=== PATIENT | female | born 1970 | race Caucasian/White ===

== ENCOUNTER 2017-01-03 10:28 | Emergency (ER) | payer OTHER ==
[~2017-01-03] VITALS: Ht 160 cm; Wt 67.0 kg
[~2017-01-03 10:28] MED LIST: ALBUTEROL INH
[2017-01-03 10:29] VITALS: Ht 160 cm; Wt 67.0 kg
[2017-01-03] MEDS ORDERED: IPRATROPIUM (NEB) 0.5 MG/2.5 ML AMP NEB STA (10:40)
[2017-01-03] MEDS ORDERED: predniSONE 20 MG TAB PO STA (10:40)
[2017-01-03] MEDS ORDERED: ALBUTEROL 0.5% (NEB) 2.5 MG/0.5 ML AMP INH STA (10:40)
--- NOTE | 2017-01-03 10:51 | ERD ---
ER Documentation Chief Complaint Date/Time DATE: 01/03/17 TIME: 10:47 Chief Complaint sob x 4 hrs h/o asthma HPI Patient is a 46-year-old female past medical history of asthma who presents emergency department with shortness of breath 4 hours. Patient states that she is having wheezing. She reports using her albuterol inhaler earlier during the night with some relief of symptoms. Patient does report fevers early in the week however she states they have resolved now. Patient did have a dry cough as well. Patient denies previous history of needing intubation or hospitalization for asthma attacks. Patient denies any chest pain, nausea, vomiting, abdominal pain. Patient denies any recent travel. No sick contacts. ROS All systems reviewed and are negative except as per history of present illness. Medications Home Meds Active Scripts Albuterol Sulfate* (Proair HFA*) 8.5 Gm Hfa.aer.ad, 2 PUFF INH Q4, #1 INHALER Prov:LUPE KUHN PA-C 01/03/17 Ibuprofen* (Ibuprofen*) 600 Mg Tablet, 600 MG PO Q6, #20 TAB Prov:LUPE KUHN PA-C 01/03/17 Prednisone* (Prednisone*) 20 Mg Tab, 40 MG PO DAILY for 4 Days, TAB Prov:LUPE KUHN PA-C 01/03/17 Reported Medications [Albuterol Inh] No Conflict Check, PRN 05/21/13 Allergies Allergies: Coded Allergies: No Known Allergy (Unverified , 05/21/13) PMhx/Soc History of Surgery: Yes (TONO winter) Anesthesia Reaction: No Hx Neurological Disorder: No Hx Respiratory Disorders: Yes (ASTHMA) Hx Cardiac Disorders: No Hx Psychiatric Problems: No Hx Miscellaneous Medical Probl: No Hx Alcohol Use: No Hx Substance Use: No FmHx Family History: No diabetes Physical Exam Vitals Vital Signs Date Time Temp Pulse Resp B/P Pulse Ox O2 Delivery O2 Flow Rate FiO2 01/03/17 14:07 80 100 Room Air 01/03/17 13:07 98.4 80 20 115/74 99 Room Air 01/03/17 10:50 85 20 96 21 01/03/17 10:41 Nasal Cannula 3 01/03/17 10:29 98.1 90 22 140/63 96 Physical Exam GENERAL: Well-developed, well-nourished female. Appears to be short of breath, abdominal retractions noted. HEAD: Normocephalic, atraumatic. No deformities or ecchymosis. EYE: Pupils equal, round, and reactive to light. EOMs intact. No conjunctival erythema. No eye discharge. ENT: External ear without any masses or tenderness. Nasal mucosa pink with no discharge. Oropharynx is pink without any tonsillar erythema or exudates. No uvula deviation. No kissing tonsils. NECK: Supple. No meningismus. Normal ROM of the neck. LUNG: Wheezing auscultated in all 4 lobes. HEART: Regular rate and rhythm. No murmurs, rubs or gallops. BACK: No midline tenderness. EXTREMITES: Equal pulses bilaterally. No peripheral clubbing, cyanosis or edema. No unilateral leg swelling. NEUROLOGIC: Alert and oriented to person, place and time. Moving all four extremities. 5/5 strength in all extremities. Steady gait. SKIN: Normal color. Warm and dry. No rashes or lesions. Result Diagram: 01/03/17 1139 01/03/17 1139 Results 24 hrs Laboratory Tests Test 01/03/17 11:39 White Blood Count 9.310^3/ul Red Blood Count 4.7410^6/ul Hemoglobin 14.6g/dl Hematocrit 43.7% Mean Corpuscular Volume 92.2fl Mean Corpuscular Hemoglobin 30.8pg Mean Corpuscular Hemoglobin Concent 33.4g/dl Red Cell Distribution Width 11.9% Platelet Count 33581^3/UL Mean Platelet Volume 10.7fl Neutrophils % 71.0% Lymphocytes % 21.1% Monocytes % 3.9% Eosinophils % 3.3% Basophils % 0.4% Nucleated Red Blood Cells % 0.0/100WBC Neutrophils # 6.610^3/ul Lymphocytes # 2.010^3/ul Monocytes # 0.410^3/ul Eosinophils # 0.310^3/ul Basophils # 0.010^3/ul Nucleated Red Blood Cells # 0.010^3/ul Sodium Level 138mmol/L Potassium Level 3.9mmol/L Chloride Level 104mmol/L Carbon Dioxide Level 27mmol/L Anion Gap 11 Blood Urea Nitrogen 11mg/dl Creatinine 0.64mg/dl Glucose Level 99mg/dl Calcium Level 9.7mg/dl Current Medications Medications (Trade) Dose Ordered Sig/Isiah Route PRN Reason Start Time Stop Time Status Last Admin Dose Admin Ipratropium [place] (Atrovent 0.02% (Neb)) 1.5 mg ONCE STAT NEB 01/03/17 10:40 01/03/17 10:45 DC Albuterol (Proventil 0.5% (Neb)) 10 mg ONCE STAT INH 01/03/17 10:40 01/03/17 10:41 DC 01/03/17 10:48 Prednisone (Prednisone) 40 mg ONCE STAT PO 01/03/17 10:40 01/03/17 10:41 DC 01/03/17 10:46 Ipratropium [place] (Atrovent 0.02% (Neb)) 1 mg ONCE ONCE HHN 01/03/17 11:00 01/03/17 11:01 DC 01/03/17 10:48 IV Flush 10 ml 10 ml STK-MED ONCE .ROUTE 01/03/17 12:52 01/03/17 12:53 DC Sodium Chloride (NS) 100 ml @ ud STK-MED ONCE .ROUTE 01/03/17 12:52 01/03/17 12:53 DC Iohexol (Omnipaque 300mg/ ml) 150 ml STK-MED ONCE .ROUTE 01/03/17 12:52 01/03/17 12:53 DC Procedures/MDM ED COURSE: The patient was stable throughout ED course. I kept the patient and/or family informed of laboratory and diagnostic imaging results throughout the ED course. DIAGNOSTIC IMAGING: Read by radiologist. DIAGNOSTIC IMAGING REPORT Patient: DEUCE BARBER : 1970 Age: 46 Sex: F MR #: [id number] DOS: 01/03/17 1040 Ordering MD: LUPE KUHN PA-C Location: [facility] Room/Bed: PROCEDURE: XR Chest. CLINICAL INDICATION: Asthma TECHNIQUE: Single frontal view of the chest was obtained COMPARISON: 05/21/2013 FINDINGS: The heart and mediastinum are within normal limits. There is a new 3.0 x 2.0 cm soft tissue density in the right paratracheal region. There is no pleural effusion or pneumothorax. RPTAT: AA IMPRESSION: New 3 cm right paratracheal soft tissue density, suspicious for a mass or adenopathy. Further evaluation with CT with contrast is recommended. A call report was made and the findings discussed with Lupe Kuhn Pa-c at 11:12:59 AM. .Adria Moody MD, Date Time Electronically viewed and signed by .Adria Moody MD, MD on 01/03/2017 11: 26 .S/ CC: LUPE KUHN PA-C Patient: DEUCE BARBER : 1970 Age: 46 Sex: F MR #: [id number] DOS: 01/03/17 1127 Ordering MD: LUPE KUHN PA-C Location: [facility] Room/Bed: PROCEDURE: CT Chest with contrast. CLINICAL INDICATION: Abnormal chest x-ray. Asthma exacerbation. TECHNIQUE: CT scan of the chest with contrast was performed following the uncomplicated intravenous administration of 80 cc of Omnipaque-300. Coronal and sagittal reformatted images were obtained from the axial source images. Images were reviewed on a high-resolution PACS workstation. CTDIvol (mGy): 7.88 ; Total Exam DLP (mGy-cm): 317.89. One or more of the following dose reduction techniques were utilized: - Automated exposure control. - Adjustment of the mA and/or kV according to patient size. - Use of iterative reconstruction technique. COMPARISON: Chest x-ray . FINDINGS: Limited imaging of the lower neck is unremarkable. The heart is not enlarged. There is no pericardial effusion. There is no mediastinal, hilar or axillary lymphadenopathy. There is no evidence of paratracheal mass or paratracheal lymphadenopathy. The abnormality seen on earlier chest x-ray may reflect a confluence of shadows and vascular markings. The thoracic aorta is normal in caliber. The pulmonary arteries are not enlarged. Lung volumes are normal to slightly increased. Diffuse bronchial wall thickening is observed. Scattered mild atelectatic changes are seen within the right lower lobe and middle lobe. There is no pulmonary consolidation or pleural effusion. There is no concerning pulmonary nodule. Limited imaging of the upper abdomen demonstrates evidence of cholecystectomy. Skeletal structures are unremarkable. Body wall soft tissues are unremarkable. IMPRESSION: No evidence of mass or lymphadenopathy of the chest. Specifically, there is no abnormality corresponding to the paratracheal density seen on earlier chest x- ray. Imaging findings on the x-ray are likely a result of a confluence of shadows and vascular markings. Diffuse bronchial wall thickening suggesting the presence of airway inflammation /reactive airways disease. RPTAT: HLST .Yolette Gaffney MD, Date Time Electronically viewed and signed by .Yolette Gaffney MD, on 01/03/2017 13:26 .T/ CC: LUPE KUHN PA-C PROCEDURES: None. MEDICATIONS GIVEN: Albuterol 1 hour, ipratropium, prednisone Patient tolerated medication well with no adverse reactions. MEDICAL DECISION MAKING: This is a 46-year-old female with history of asthma presents with shortness of breath 4 hours. Patient does report using her inhaler earlier today with some alleviation of symptoms. Vital signs were reviewed. Patient was afebrile. Patient was not hypoxic. Patient presented with O2 sats of 96-98%. Patient was not hypoxic. ENT exam was normal. Lung exam initially revealed wheezing in all 4 lobes. Patient was given a breathing treatment here in the emergency department. Chest x-ray showed New 3 cm right paratracheal soft tissue density , suspicious for a mass or adenopathy. Further evaluation with CT with contrast is recommended. I spoke to the radiologist completion supervisor who advised me to order CT chest with IV contrast. CT chest with IV contrast showed no evidence of mass or lymphadenopathy of the chest. Specifically, there is no abnormality corresponding to the paratracheal density seen on earlier chest x-ray. Imaging findings on the x-ray are likely a result of a confluence of shadows and vascular markings. Diffuse bronchial wall thickening suggesting the presence of airway inflammation/reactive airways disease. I explained the results of the patient. On reexamination, patient did have improved breath sounds. Patient continued to have some wheezing however she report feeling much better. Patient no longer had abdominal retractions and did not display signs of shortness of breath. Given these findings, the patient's presentation is most consistent with asthma exacerbation secondary to viral cause. I have a much lower clinical concern for bacterial infections including lung nodule, lung mass, respiratory failure, pneumonia, meningitis, sinusitis, otitis externa, acute otitis media, strep pharyngitis, epiglottitis or peritonsillar abscess. PRESCRIPTIONS: Ibuprofen, prednisone, albuterol inhaler DISCHARGE: At this time, patient is stable for discharge and outpatient management. Patient provided with copies of imaging studies and blood work obtained today. Supportive therapies such as OTC throat lozenges, salt water gurgles, popsicles and jello discussed. I have instructed the patient to follow-up with his/her primary care physician in 1-2 days. I have instructed the patient to promptly return to the ER for any new or worsening symptoms including increased pain, swelling, fever, nausea, vomiting, weakness or difficulty breathing. The patient and/or family expressed understanding of and agreement with this plan. All questions were answered. Home care instructions were provided. Departure Diagnosis: Primary Impression: Asthma exacerbation Condition: Stable Patient Instructions: Asthma Medications Referrals: MEETA RIZZO (PCP) Additional Instructions: Call your primary care doctor TOMORROW for an appointment during the next 1-2 days.See the doctor sooner or return here if your condition worsens before your appointment time. LUPE KUHN PA-C January 03, 2017 10:51
[2017-01-03] MEDS ORDERED: IPRATROPIUM (NEB) 0.5 MG/2.5 ML AMP HHN ONE (11:00)
--- NOTE | 2017-01-03 11:26 | RADRPT ---
PROCEDURE: XR Chest. CLINICAL INDICATION: Asthma TECHNIQUE: Single frontal view of the chest was obtained COMPARISON: 05/21/2013 FINDINGS: The heart and mediastinum are within normal limits. There is a new 3.0 x 2.0 cm soft tissue density in the right paratracheal region. There is no pleural effusion or pneumothorax. RPTAT: AA IMPRESSION: New 3 cm right paratracheal soft tissue density, suspicious for a mass or adenopathy. Further evaluation with CT with contrast is recommended. A call report was made and the findings discussed with Magdalena Kuhn Pa-c at 01/03/2017 11:12:59 AM. .Adria Moody MD, MD Date Time Electronically viewed and signed by .Adria Moody MD, on 01/03/2017 11:26 .S/
[2017-01-03 11:53] LABS: ADD SCAN DIFF NO
[2017-01-03 11:56] LABS: BASOPHILS % 0.4 % (0.0-2.0); EOSINOPHILS # 0.3 10^3/ul (0.0-0.5); EOSINOPHILS % 3.3 % (0.0-7.0); HEMATOCRIT 43.7 % (37.0-47.0); HEMOGLOBIN 14.6 g/dl (12.0-16.0); LYMPHOCYTES % 21.1 % (15.0-51.0); MEAN CORPUSCULAR HEMOGLOBIN 30.8 pg (29.0-33.0); MEAN CORPUSCULAR HGB CONC 33.4 g/dl (32.0-37.0); MEAN CORPUSCULAR VOLUME 92.2 fl (82.0-101.0); MEAN PLATELET VOLUME 10.7 fl (7.4-10.4); MONOCYTE # 0.4 10^3/ul (0.3-0.9); MONOCYTES % 3.9 % (0.0-11.0); NEUTROPHIL # 6.6 10^3/ul (1.6-7.5); PLATELET COUNT 209 10^3/UL (140-415); RED BLOOD COUNT 4.74 10^6/ul (4.20-5.40); RED CELL DISTRIBUTION WIDTH 11.9 % (11.5-14.5); WHITE BLOOD COUNT 9.3 10^3/ul (4.8-10.8)
[2017-01-03 12:19] LABS: CALCIUM 9.7 mg/dl (8.4-10.2); CREATININE 0.64 mg/dl (0.44-1.00); POTASSIUM 3.9 mmol/L (3.5-5.1)
[2017-01-03] MEDS ORDERED: SOD CHLORIDE 0.9% 100 ML ONE (12:52)
[2017-01-03] MEDS ORDERED: IOHEXOL 300MG/ML 150 ML BTL ONE (12:52)
[2017-01-03 13:07] VITALS: BP 115/74; RESP 20; TEMP 98.4
--- NOTE | 2017-01-03 13:26 | RADRPT ---
PROCEDURE: CT Chest with contrast. CLINICAL INDICATION: Abnormal chest x-ray. Asthma exacerbation. TECHNIQUE: CT scan of the chest with contrast was performed following the uncomplicated intravenou s administration of 80 cc of Omnipaque-300. Coronal and sagittal reformatted images were obtained f rom the axial source images. Images were reviewed on a high-resolution PACS workstation. CTDIvol (mG y): 7.88; Total Exam DLP (mGy-cm): 317.89. One or more of the following dose reduction techniques were utilized: - Automated exposure control. - Adjustment of the mA and/or kV according to patient size. - Use of iterative reconstruction technique. COMPARISON: Chest x-ray . FINDINGS: Limited imaging of the lower neck is unremarkable. The heart is not enlarged. There is no pericardial effusion. There is no mediastinal, hilar or axi llary lymphadenopathy. There is no evidence of paratracheal mass or paratracheal lymphadenopathy. The abnormality seen on earlier chest x-ray may reflect a confluence of shadows and vascular marking s. The thoracic aorta is normal in caliber. The pulmonary arteries are not enlarged. Lung volumes are normal to slightly increased. Diffuse bronchial wall thickening is observed. Scat tered mild atelectatic changes are seen within the right lower lobe and middle lobe. There is no pu lmonary consolidation or pleural effusion. There is no concerning pulmonary nodule. Limited imaging of the upper abdomen demonstrates evidence of cholecystectomy. Skeletal structures are unremarkable. Body wall soft tissues are unremarkable. IMPRESSION: No evidence of mass or lymphadenopathy of the chest. Specifically, there is no abnormality correspo nding to the paratracheal density seen on earlier chest x-ray. Imaging findings on the x-ray are li darlin a result of a confluence of shadows and vascular markings. Diffuse bronchial wall thickening suggesting the presence of airway inflammation/reactive airways di sease. RPTAT: HLST .Yolette Gaffney MD, Date Time Electronically viewed and signed by .Yolette Gaffney MD, MD on 01/03/2017 13:26 .T/
[2017-01-03] MEDS ORDERED: ALBU8.5H3 INH (13:48)
[2017-01-03] MEDS ORDERED: PRED20TA PO (13:48)
[2017-01-03] MEDS ORDERED: IBUP-1542 PO (13:48)
[2017-01-03 14:07] VITALS: PULSE 80
== END 2017-01-03 14:08 | disposition home or self-care (01) ==
LOC: FTE 10:28
DX: J45.901 Unspecified asthma with (acute) exacerbation (principal)
CPT/HCPCS: 36415; 71010; 71260; 80048; 85025; 94644; 99285; J7512; Q9967